=== PATIENT | female | born 1990 | race Hispanic/Latino ===

== ENCOUNTER 2019-06-14 09:30 | Observation (INO) | payer BC ==
[~2019-06-14] VITALS: Ht 160 cm; Wt 76.2 kg
== END 2019-06-14 12:00 | disposition home or self-care (01) ==
LOC: LDH 09:30
PROVIDERS: ADMIT Obstetrics & Gynecology; ATTEND Obstetrics & Gynecology
DX: Z34.93 Encounter for supervision of normal pregnancy, unspecified, third trimester (principal); Z3A.31 31 weeks gestation of pregnancy; W19.XXXA Unspecified fall, initial encounter; Y93.89 Activity, other specified; Y92.89 Other specified places as the place of occurrence of the external cause; Z88.8 Allergy status to other drugs, medicaments and biological substances
CPT/HCPCS: 76805; G0378 ×3; J7120; 96360; 96361

== ENCOUNTER 2019-08-08 08:38 | Observation (INO) | payer BC ==
[2019-08-08] MEDS ORDERED: LACTATED RINGERS 1000ML 1,000 ML IV PRN (09:12)
[2019-08-08 09:30] LABS: APPEARANCE,URINE Clear (CLEAR); BILIRUBIN,URINE Negative (NEGATIVE); COLOR,URINE Yellow (YELLOW); GLUCOSE, URINE (UA) Negative (NEGATIVE); KETONES,URINE Negative (NEGATIVE); LEUKOCYTE ESTERASE ,URINE Negative (NEGATIVE); NITRATE,URINE Negative (NEGATIVE); OCCULT BLOOD,URINE Negative (NEGATIVE); PROTEIN,URINE Negative (NEGATIVE); UROBILINOGEN,URINE 0.2 mg/dL (0.2-1.0)
== END 2019-08-08 11:10 | disposition home or self-care (01) ==
LOC: INTOOBSV 08:38 → LDH 08:38
PROVIDERS: ADMIT Obstetrics & Gynecology; ATTEND Obstetrics & Gynecology
DX: O41.03X0 Oligohydramnios, third trimester, not applicable or unspecified (principal); Z3A.39 39 weeks gestation of pregnancy
CPT/HCPCS: 76819; 81003; G0378; J7120 ×2; 96360; 96361

== ENCOUNTER 2019-08-10 11:04 | Inpatient (IN) | payer BC ==
[~2019-08-10] VITALS: Ht 160 cm; Wt 82.6 kg
[2019-08-19] MEDS ORDERED: LACTATED RINGERS 1000ML 1,000 ML IV PRN (08:08)
[2019-08-19] MEDS ORDERED: EPHEDRINE SULFATE 50 MG/ML AMPULE IVP PRN (08:15)
[2019-08-19] MEDS ORDERED: NALOXONE HCL 0.4 MG/1 ML ML IV PRN (08:15)
[2019-08-19] MEDS ORDERED: OXYTOCIN 10 USP UNITS/ML 20 UNIT in LACTATED RINGERS 1000ML 1,000 ML IV SCH (08:15)
[2019-08-19] MEDS ORDERED: LACTATED RINGERS 500 ML 500 ML IV PRN (08:15)
[2019-08-19 08:57] LABS: HEMATOCRIT 34.6 % (36-48); MEAN CORPUSCULAR HGB CONC 34.2 g/dL (32.0-36.0); MEAN CORPUSCULAR VOLUME 90.6 fL (79-99); NUCLEATED RED BLOOD CELLS 0.1 % (0.0-0.19); PLATELET COUNT (AUTO) 215 K/uL (130-400); RED BLOOD CELL COUNT(AUTO) 3.82 MIL/uL (4.00-5.50); WHITE BLOOD COUNT (AUTO) 9.1 K/uL (4.8-10.8)
[2019-08-19] MEDS ORDERED: OXYTOCIN-LR 20 UNITS/1000 ML 1,000 ML IV ONE ×2 (09:02→14:54)
[2019-08-19] MEDS ORDERED: FENTANYL CITRATE PF 50 MCG/1 ML 2ML VIAL ONE (09:03)
[2019-08-19 09:45] LABS: BILIRUBIN,URINE Negative (NEGATIVE); COLOR,URINE Yellow (YELLOW); GLUCOSE, URINE (UA) Negative (NEGATIVE); KETONES,URINE Negative (NEGATIVE); LEUKOCYTE ESTERASE ,URINE Negative (NEGATIVE); NITRATE,URINE Negative (NEGATIVE); OCCULT BLOOD,URINE Negative (NEGATIVE); PH,URINE 7.5 (5.0-8.0); PROTEIN,URINE Negative (NEGATIVE); UROBILINOGEN,URINE 0.2 mg/dL (0.2-1.0)
[2019-08-19 09:59] LABS: APPEARANCE,URINE CLEAR (CLEAR)
[2019-08-19] MEDS ORDERED: LIDOCAINE HCL 1% 20 ML VIAL ONE (13:06)
[2019-08-19] MEDS ORDERED: MEASLES/MUMPS/RUBELLA VACCINE, LIVE 0.5 ML/VIAL SQ PRN (14:00)
[2019-08-19] MEDS ORDERED: DIPH,PERTUSS(ACELL),TET VAC/PF 0.5 ML VIAL IM PRN (14:00)
[2019-08-19] MEDS ORDERED: ACETAMINOPHEN 325 MG TAB PO PRN (14:00)
[2019-08-19] MEDS ORDERED: LANOLIN 30GM OINTMENT TP PRN (14:00)
[2019-08-19] MEDS ORDERED: BENZOCAINE/LANOLIN/ALOE VERA 60 ML AEROSOL TP PRN (14:00)
[2019-08-19] MEDS ORDERED: ACETAMINOPHEN-CODEINE 300/30MG TAB PO PRN (14:00)
[2019-08-19] MEDS ORDERED: WITCH HAZEL 1 PAD TP PRN (14:00)
--- NOTE | 2019-08-19 15:15 | NUR ---
REPORT RECEIVED HENRY CUI, TITRATOR NURSE FROM AND PATIENT WAS TRANSFERED VIA W/C TO ROOM. PATIENT ORIENTED TO UNIT AND CALL LIGHT AT BEDSIDE WITHIN REACH TO CALL WHEN NEEDING TO VOID. SITZ BATH, DERMAPLAST SPRAY AND TUCKS GIVEN ALONG WITH LANOLIN CREAM AND INSTRUCTED PATIENT ON USE. VERBALIZED UNDERSTANDING INSTRUCTIONS GIVEN. PIV TO LEFT WRIST IS PATENT AND INFUSING WELL. VAGINAL BLEEDING IS SMALL.
[2019-08-19 15:54] VITALS: BP 146/85
[2019-08-19] MEDS: IBUPROFEN 600 MG TABLET PO PRN (16:13)
[2019-08-19] MEDS ORDERED: FLU VACC QS2019-20 36MOS UP/PF 60 MCG/0.5 ML ML IM SCH (17:00)
[2019-08-19] MEDS ORDERED: PREN-68 PO (17:10)
[2019-08-19] MEDS ORDERED: FERR-82 PO (17:10)
--- NOTE | 2019-08-19 18:30 | NUR ---
PATIENT ASSISTED UP TO BATHROOM AND VOIDED 900CC OF BLOOD TINGE URINE.
[2019-08-19 20:05] VITALS: BP 113/71
[2019-08-19] MEDS: DOCUSATE SODIUM 100 MG CAP PO SCH (20:45)
[2019-08-19 23:35] VITALS: BP 107/67
[2019-08-20 03:15] VITALS: BP 113/70
[2019-08-20] MEDS: IBUPROFEN 600 MG TABLET PO PRN ×3 (03:23→19:28)
[2019-08-20 07:14] LABS: HEPATITIS Bs ANTIGEN SCREEN P Negative (Negative)
[2019-08-20 07:32] VITALS: BP 111/74
[2019-08-20] MEDS: DOCUSATE SODIUM 100 MG CAP PO SCH ×2 (09:19→20:18)
[2019-08-20 11:50] VITALS: BP 119/77
[2019-08-20 16:45] VITALS: BP 120/76
[2019-08-20 19:15] VITALS: BP 115/83
[2019-08-20 23:32] VITALS: BP 108/81
[2019-08-21 03:25] VITALS: BP 116/79
[2019-08-21 07:19] VITALS: BP 115/80
[2019-08-21] MEDS: DOCUSATE SODIUM 100 MG CAP PO SCH (09:22)
[2019-08-21] MEDS: IBUPROFEN 600 MG TABLET PO PRN (09:23)
--- NOTE | 2019-08-21 11:45 | NUR ---
PT VERBALIZED OF FEELING SORENESS TO LEFT NIPPLE AREA. CRACKING PRESENT. MOTHER LATCHED BABY TO BREAST WITH CRADLE POSITION AND BABY'S LIPS FLANGED OUT. ENTIRE AREOLA IN BABY'S MOUTH AND STRONG SUCKLING OBSERVED FROM BABY. MOTHER STATED THIS LATCH ISN'T UNCOMFORTABLE PREVIOUS FEEDINGS. PT REMINDED TO BE OBSERVANT OF BABY'S PROPER LATCH. BABY FINISHED EATING AFTER 7 MINUTES AND WAS CONTENT, RELAXED, AND FELL ASLEEP. MOTHER REASSURED AND ENCOURAGED TO CONTINUE FEEDING ON DEMAND. FATHER ALONGSIDE MOTHER, PROVIDING ENCOURAGEMENT.
[2019-08-21 12:08] VITALS: BP 111/59
--- NOTE | 2019-08-21 12:45 | NUR ---
DISCHARGE PT LEFT UNIT VIA WHEELCHAIR, WITH BABY IN ARMS, ACCOMPANIED BY SPOUSE. DENIED PAIN AND HAD NO COMPLAINTS. BABY STRAPPED IN CAR SEAT. PT AND BABY TRANSPORTED BY PERSONAL VEHICLE.
== END 2019-08-21 12:45 | disposition home or self-care (01) | DRG 807 ==
LOC: LDH 08-19 07:53 → OBSVTOIN 08-19 07:53 → WSH 08-19 14:47
PROVIDERS: ADMIT Obstetrics & Gynecology; ATTEND Obstetrics & Gynecology
PROC: 10E0XZZ Delivery of Products of Conception, External Approach (ICD-10-PCS; principal; 2019-08-19)
PROC: 10907ZC Drainage of Amniotic Fluid, Therapeutic from Products of Conception, Via Natural or Artificial Opening (ICD-10-PCS; 2019-08-19)
PROC: 3E0R3BZ Introduction of Anesthetic Agent into Spinal Canal, Percutaneous Approach (ICD-10-PCS; 2019-08-19)
PROC: 00HU33Z Insertion of Infusion Device into Spinal Canal, Percutaneous Approach (ICD-10-PCS; 2019-08-19)
PROC: 0UQGXZZ Repair Vagina, External Approach (ICD-10-PCS; 2019-08-19)
PROC: 3E0234Z Introduction of Serum, Toxoid and Vaccine into Muscle, Percutaneous Approach (ICD-10-PCS; 2019-08-19)
PROC: 3E0134Z Introduction of Serum, Toxoid and Vaccine into Subcutaneous Tissue, Percutaneous Approach (ICD-10-PCS; 2019-08-19)
PROC: 3E02340 Introduction of Influenza Vaccine into Muscle, Percutaneous Approach (ICD-10-PCS; 2019-08-19)
DX: O71.4 Obstetric high vaginal laceration alone (principal); Z37.0 Single live birth; Z3A.41 41 weeks gestation of pregnancy; Z23 Encounter for immunization
CPT/HCPCS: 36415; 81003; 85027; 86592; 86850; 86900; 86901; 87340; 90715; A4314; G0378; J2590; J3010; J7120